=== PATIENT | male | born 1975 | race Caucasian/White ===

== ENCOUNTER 2021-09-25 11:00 | Observation (INO) | payer BC ==
[~2021-09-25] VITALS: Ht 195.6 cm; Wt 117.9 kg
[2021-09-25] MEDS ORDERED: LISINOPRIL40 MG PO (14:26)
[2021-09-25] MEDS ORDERED: KLONOPIN0.5 MG PO (14:26)
[2021-09-25] MEDS ORDERED: VIIBRYD10 MG PO (14:27)
[2021-09-25] MEDS ORDERED: ATORVASTATIN CA20 MG PO (14:27)
== END 2021-09-25 19:25 | disposition home or self-care (01) ==
LOC: ER1 11:00 → CDU 14:00 → M/S 18:11
PROVIDERS: ADMIT Orthopaedic Surgery
DX: S43.004A Unspecified dislocation of right shoulder joint, initial encounter (principal); I10 Essential (primary) hypertension; F41.9 Anxiety disorder, unspecified; E78.5 Hyperlipidemia, unspecified; Z79.899 Other long term (current) drug therapy; V00.141A Fall from scooter (nonmotorized), initial encounter
CPT/HCPCS: 73020; 73030; 76000; 96374; 96375; 99284; G0378; J1100; J1170; J1885; J2001; J2250; J2270; J2405; J2704; J3010

== ENCOUNTER → 2021-10-14 | Outpatient (CLI) | payer BC ==
[~2021-10-14] MED LIST: ATORVASTATIN CA20 MG PO; KLONOPIN0.5 MG PO; LISINOPRIL40 MG PO; VIIBRYD10 MG PO
== END ==
LOC: KOH-I 11:15
DX: M75.111 Incomplete rotator cuff tear or rupture of right shoulder, not specified as traumatic (principal); M75.121 Complete rotator cuff tear or rupture of right shoulder, not specified as traumatic; S42.291A Other displaced fracture of upper end of right humerus, initial encounter for closed fracture; X58.XXXA Exposure to other specified factors, initial encounter
CPT/HCPCS: 73221